=== PATIENT | male | born 1990 | race Hispanic/Latino ===

== ENCOUNTER 2025-04-07 14:50 | Emergency (ER) | payer MEDICARE ==
[~2025-04-07] VITALS: Ht 170.2 cm; Wt 34.5 kg
[2025-04-07 14:55] VITALS: PULSE 87; RESP 17; TEMP 98.7
[2025-04-07 15:40] LABS: STREPTOCOCCUS GRP A ANTIGEN NEGATIVE (NEGATIVE)
[2025-04-07 15:48] LABS: CORONAVIRUS COVID-19 AG NEGATIVE (NEGATIVE); INFLUENZA A AG NEGATIVE (NEGATIVE); INFLUENZA B AG NEGATIVE (NEGATIVE)
[2025-04-07] MEDS ORDERED: ROBITUSSIN COU118 M4 PO (16:22)
[2025-04-07] MEDS ORDERED: CETIRIZINE HCL10 MG PO (16:22)
[2025-04-07] MEDS ORDERED: NAPROSYN500 MG PO (16:22)
[2025-04-07] MEDS: METHYLPREDNISOLONE SOD SUCC 125 MG/2ML VIAL IM ONE (16:57)
[2025-04-07] MEDS: WATER STERILE 10 ML VIAL IV STA (16:58)
[2025-04-07 17:30] VITALS: BP 127/95; PULSE 71; RESP 18; TEMP 98; O2SAT 98
== END 2025-04-07 17:32 | disposition home or self-care (01) ==
LOC: ER 16:22
DX: R05.9 Cough, unspecified (principal); J06.9 Acute upper respiratory infection, unspecified; E11.9 Type 2 diabetes mellitus without complications; Z11.52 Encounter for screening for COVID-19
CPT/HCPCS: 83518; 87070; 87428; 99283; J2919